=== PATIENT | male | born 1980 | race Caucasian/White ===

== ENCOUNTER 2016-10-15 07:17 | Inpatient (IN) | payer MEDICAID ==
[~2016-10-15] VITALS: Ht 177.8 cm; Wt 73.9 kg
[2016-10-15 07:37] LABS: BASOPHILS # (AUTO) 0.03 K/uL (0.00-0.20); BASOPHILS % (AUTO) 0.3 % (0.0-2.0); EOSINOPHILS # (AUTO) 0.15 K/uL (0.00-0.70); EOSINOPHILS % (AUTO) 1.83 % (1.0-6.0); HEMATOCRIT 46.5 % (41-53); HEMOGLOBIN 15.7 g/dL (13.5-17.5); LYMPHOCYTES # (AUTO) 1.7 K/uL (1.0-4.8); LYMPHOCYTES % (AUTO) 20.4 % (22.0-44.0); MEAN CORPUSCULAR HEMOGLOBIN 31.6 pg (26.0-34.0); MEAN CORPUSCULAR HGB CONC 33.8 G/dL (31.0-37.0); MEAN CORPUSCULAR VOLUME 94 fL (80-100); MONOCYTES # (AUTO) 0.6 K/uL (0.1-1.0); MONOCYTES % (AUTO) 7.2 % (2.0-9.0); NEUTROPHILS # (AUTO) 5.7 K/uL (1.8-7.7); NEUTROPHILS % (AUTO) 70.3 % (40.0-70.0); PLATELET COUNT (AUTO) 264 K/uL (150-450); RED BLOOD CELL COUNT(AUTO) 4.97 MIL/uL (4.50-5.90); WHITE BLOOD COUNT (AUTO) 8.2 K/uL (4.5-11.0)
[2016-10-15 07:50] LABS: ANION GAP 9 mmol/L (8-16); CALCIUM, TOTAL 9.3 mg/dL (8.8-10.5); CARBON DIOXIDE 28 mmol/L (22-29); CHLORIDE 98 mmol/L (98-107); CREATININE 0.99 mg/dL (0.60-1.30); GLOMERULAR FILTR. RATE CALC > 60 mL/min (>60); SODIUM SERUM 135 mmol/L (136-145); UREA NITROGEN, BLOOD 12 mg/dL (7-18)
[2016-10-15 07:56] LABS: ALANINE AMINOTRANSFERASE 38 U/L (12-78); ALBUMIN 4.2 g/dL (3.4-5.0); ASPARTATE AMINOTRANSFERASE 29 U/L (15-37); BILIRUBIN,TOTAL 0.7 mg/dL (0.1-1.0); TOTAL PROTEIN, SERUM 8.1 g/dL (6.4-8.2)
[2016-10-15] MEDS ORDERED: HALOPERIDOL 5 MG TABLET PO ONE (08:00)
[2016-10-15] MEDS ORDERED: LORazepam 2 MG TABLET PO ONE (08:00)
[2016-10-15] MEDS ORDERED: QUEtiapine FUMARATE 100 MG TABLET PO PRN (09:30)
[2016-10-15] MEDS ORDERED: ZOLPIDEM TARTRATE 10 MG TABLET PO PRN (09:30)
[2016-10-15] MEDS ORDERED: LORazepam 2 MG TABLET PO PRN (09:30)
[2016-10-15 11:46] VITALS: BP 107/76
[2016-10-15] MEDS ORDERED: ACETAMINOPHEN 325 MG TABLET PO PRN (13:15)
[2016-10-15] MEDS ORDERED: MAGNESIUM HYDROXIDE SUSPENSION 30 ML UDCUP PO PRN (13:15)
[2016-10-15] MEDS ORDERED: PROMETHAZINE HCL 25 MG TABLET PO PRN (13:15)
[2016-10-15] MEDS ORDERED: MAG HYDROX/AL HYDROX/SIMETH ES 30 ML SUSPENSION UDCUP PO PRN (13:15)
[2016-10-15] MEDS ORDERED: GuaiFENesin/D-METHORPHAN [SUGAR-FREE] 200-20MG/10 ML SYRUP UDCUP PO PRN (13:15)
[2016-10-15] MEDS ORDERED: LOPERAMIDE HCL 2 MG CAPSULE PO PRN (13:15)
[2016-10-15] MEDS ORDERED: TUBERCULIN, PURIFIED PROTEIN DERIVATIVE 5 TU/0.1 ML SYG ID ONE (13:15)
[2016-10-15] MEDS ORDERED: HydrOXYzine PAMOATE 50 MG CAPSULE PO PRN (13:15)
[2016-10-15 16:00] VITALS: BP 102/75
[2016-10-15] MEDS: THIAMINE HCL 100 MG TABLET PO SCH (17:10)
[2016-10-15] MEDS ORDERED: QUEtiapine FUMARATE 100 MG TABLET PO SCH (21:00)
[2016-10-16 08:04] VITALS: BP 122/88
[2016-10-16] MEDS: THIAMINE HCL 100 MG TABLET PO SCH ×2 (08:54→16:54)
[2016-10-16] MEDS: FOLIC ACID 1 MG TABLET PO SCH (08:54)
[2016-10-16] MEDS: NALTREXONE HCL 50 MG TABLET PO SCH (08:54)
[2016-10-16] MEDS: MULTIVITAMINS WITH MINERALS, THERAPEUTIC TABLET PO SCH (08:54)
[2016-10-16] MEDS: LITHIUM CARBONATE 300 MG CAPSULE PO SCH (20:40)
[2016-10-16] MEDS ORDERED: ACETAMINOPHEN 325 MG TABLET PO PRN (22:00)
[2016-10-16] MEDS ORDERED: IBUPROFEN 400 MG TABLET PO PRN (22:00)
[2016-10-17 07:24] LABS: HEMOGLOBIN A1C 5.2 % (4.5-6.2)
[2016-10-17 07:31] LABS: CHOL/HDL RATIO 3.2 (4.2-7.3); THYROID STIMULATING HORMONE 0.62 uIU/mL (0.36-3.74)
[2016-10-17] MEDS: FOLIC ACID 1 MG TABLET PO SCH (08:16)
[2016-10-17] MEDS: THIAMINE HCL 100 MG TABLET PO SCH ×2 (08:16→16:12)
[2016-10-17] MEDS: NALTREXONE HCL 50 MG TABLET PO SCH (08:16)
[2016-10-17] MEDS: MULTIVITAMINS WITH MINERALS, THERAPEUTIC TABLET PO SCH (08:16)
[2016-10-17 09:41] VITALS: BP 120/64
[2016-10-17 17:14] VITALS: BP 120/70
[2016-10-17] MEDS: LITHIUM CARBONATE 300 MG CAPSULE PO SCH (20:03)
[2016-10-18 08:04] VITALS: BP 122/63
[2016-10-18] MEDS ORDERED: LITH300C3 PO (08:33)
[2016-10-18] MEDS ORDERED: NALT50TA10 PO (08:33)
[2016-10-18] MEDS: MULTIVITAMINS WITH MINERALS, THERAPEUTIC TABLET PO SCH (10:28)
[2016-10-18] MEDS: THIAMINE HCL 100 MG TABLET PO SCH (10:28)
[2016-10-18] MEDS: FOLIC ACID 1 MG TABLET PO SCH (10:28)
[2016-10-18] MEDS: NALTREXONE HCL 50 MG TABLET PO SCH (10:31)
== END 2016-10-18 11:55 | disposition home or self-care (01) | DRG 750 ==
LOC: EMS 07:19 → 3EI 10:58
PROVIDERS: ADMIT Psychiatry & Neurology Psychiatry; ATTEND Psychiatry & Neurology Psychiatry
DX: F25.0 Schizoaffective disorder, bipolar type (principal); R45.851 Suicidal ideations; F15.10 Other stimulant abuse, uncomplicated; F99 Mental disorder, not otherwise specified; F19.10 Other psychoactive substance abuse, uncomplicated; F17.210 Nicotine dependence, cigarettes, uncomplicated; Z71.6 Tobacco abuse counseling; Z71.41 Alcohol abuse counseling and surveillance of alcoholic; Z71.51 Drug abuse counseling and surveillance of drug abuser
CPT/HCPCS: 83036; 84443; 99285; G0480